=== PATIENT | female | born 1975 | race Caucasian/White ===

== ENCOUNTER 2021-11-07 05:56 | Day surgery (SDC) | payer BC, OTHER ==
[2021-11-05 13:21] VITALS: BMI 32.3
[2021-11-07] MEDS ORDERED: ROPIVACAINE HCL/PF 100 MG/20 ML VIAL ONE (06:53)
[2021-11-07] MEDS ORDERED: MIDAZOLAM HCL 2 MG/2 ML SINGLE DOSE VIAL ONE ×3 (06:53→08:29)
[2021-11-07] MEDS ORDERED: DEXAMETHASONE SOD PHOSPHATE 10 MG/1 ML VIAL ONE (07:17)
[2021-11-07] MEDS ORDERED: BUPIVACAINE HCL/EPINEPHRINE/PF 30 ML VIAL IJ ONE (07:25)
[2021-11-07] MEDS ORDERED: PROPOFOL 20 ML ONE ×3 (07:28)
[2021-11-07] MEDS ORDERED: ONDANSETRON 4 MG/2 ML VIAL IVPUSH PRN (09:37)
[2021-11-07 10:12] VITALS: TEMP 97.4
[2021-11-07 10:56] VITALS: BP 119/69; PULSE 74
== END 2021-11-07 10:55 | disposition home or self-care (01) ==
LOC: FASU 05:56
PROVIDERS: ATTEND Orthopaedic Surgery
PROC: 0RBK4ZZ Excision of Left Shoulder Joint, Percutaneous Endoscopic Approach (ICD-10-PCS; principal; 2021-11-07 08:25)
DX: M75.32 Calcific tendinitis of left shoulder (principal); M75.52 Bursitis of left shoulder
CPT/HCPCS: 73030-TC-LT-FY; 94760; J1100